=== PATIENT | male | born 1960 | race African-American/Black ===

== ENCOUNTER 2023-12-13 13:08 | Outpatient (REF) | payer OTHER, SELFPAY ==
[2023-12-13 15:05] LABS: Folate 9.1 ng/mL (> or = 4.0); Vitamin B12 443 pg/mL (200-900)
[2023-12-13 15:08] LABS: TSH reflex Free T4 0.92 uIU/mL (0.32-4.0)
[2023-12-13 15:14] LABS: Anion Gap 11 (12-20)
[2023-12-13 15:18] LABS: Alanine Aminotransferase 23 U/L (0-40); Alkaline Phosphatase 60 U/L (39-117); Aspartate Amino Transferase 15 U/L (5-37); Bilirubin Total 1.5 mg/dL (0.0-1.0); Blood Urea Nitrogen 13 mg/dL (9-16); Calcium 9.5 mg/dL (8.4-10.2); Carbon Dioxide 28 mmol/L (22-29); Chloride 108 mmol/L (96-108); Estimated Glomerular Filt Rate > 60; Glucose Random 130 mg/dL (60-115); Potassium 4.1 mmol/L (3.3-5.1); Sodium 143 mmol/L (135-145); Total Protein 7.7 g/dL (6.5-8.0)
[2023-12-15 18:14] LABS: Homocysteine 12.7 umol/L (<11.4)
[2023-12-17 03:54] LABS: Methylmalonic Acid 119 nmol/L (69-390)
== END 2023-12-13 13:09 | disposition home or self-care (01) ==
LOC: HO.LAB 13:08
PROVIDERS: PCP Internal Medicine; Visit Provider Psychiatry & Neurology Neurology
DX: R41.3 Other amnesia (principal)
CPT/HCPCS: 36415; 80053; 82607; 82746; 83090; 83921; 84443